=== PATIENT | female | born 1980 | race Caucasian/White ===

== ENCOUNTER 2022-01-20 09:53 | Emergency (ER) | payer OTHER, SELFPAY ==
[2022-01-20 10:12] VITALS: BP 129/72; PULSE 90; RESP 16; TEMP 36.4; O2SAT 100; BMI 32.8
--- NOTE | 2022-01-20 10:25 | ED.GENADULT ---
HPI - General Adult General Chief complaint: Shoulder Injury/Pain Stated complaint: shoulder injury Time Seen by Provider: 01/20/22 09:56 Source: patient Mode of arrival: ambulatory Limitations: no limitations History of Present Illness HPI narrative: 41-year-old female coming in today complaining right shoulder pain. She states that she was at work this morning, stretching out a pair of [employer] stockings, when she felt sharp pain in the right shoulder. The pain is located in the anterior shoulder radiate into the axilla down the side of the lateral chest and up into the lateral neck as well as the area above the shoulder blade. Sitting still makes it better any movement makes it worse. She denies any other joint pain or recent illness. Related Data Previous Rx's Medication Instructions Recorded cyclobenzaprine 10 mg tablet 10 mg PO TID PRN muscle spasm #10 01/20/22 tabs Allergies Allergy/AdvReac Type Severity Reaction Status Date / Time No Known Drug Allergies Allergy Verified 01/20/22 10:14 Review of Systems Status of ROS: Reports: 10 or more systems reviewed and unremarkable except as noted in History and below Exam Narrative: Exam Narrative: Well-nourished well-developed patient in no acute distress but appears uncomfortable. Alert and oriented. Answers questions appropriately. Mood and affect are appropriate. Thoughts are goal oriented and rational. No tangential or magical thinking noted. Patient speaks in full sentences without needing to catch her breath. HEENT: Normocephalic atraumatic. Pupils are equally round reactive to light. Extraocular muscles are intact. Conjunctivae are moist without any icterus noted. Extremities: Shoulders have normal appearance without any deformities. She has no tenderness to palpation over the bony prominences of the shoulder or shoulder blade. No pain over the clavicle. There is no bruising, erythema or swelling noted. She has no tenderness over the trapezius, deltoid. She has no tenderness to palpation of the anterior or lateral chest wall. Back is normal appearance. She does have full range of motion at the shoulder but it causes her discomfort to move it. Strength is 5/5 of the upper right extremity at the shoulder and elbow. Normal radial pulse. Skin: Well perfused without any obvious rashes. Const: Vital Signs, click to edit/add: Vital Signs - 24 hr 01/20/22 10:12 Temperature 97.6 F Pulse Rate [Left P ulse Oximeter] 90 Respiratory Rate 16 Blood Pressure [Ri ght Upper Arm] 129/72 Pulse Oximetry 100 Oxygen Delivery Me thod Room Air Course Vital Signs Vital signs: Initial Vital Signs Temperature 97.6 F 01/20/22 10:12 Temperature Source Temporal Artery Scan 01/20/22 10:12 Pulse Rate 90 01/20/22 10:12 Pulse Rhythm 01/20/22 10:12 Pulse Strength 3+ Normal 01/20/22 10:12 Respiratory Rate 16 01/20/22 10:12 Blood Pressure 129/72 01/20/22 10:12 Blood Pressure Mean 91 01/20/22 10:12 Blood Pressure Position Sitting 01/20/22 10:12 Pulse Oximetry 100 01/20/22 10:12 Oxygen Delivery Method 01/20/22 10:12 Vital Signs Temperature 97.6 F 01/20/22 10:12 Pulse Rate 90 01/20/22 10:12 Respiratory Rate 16 01/20/22 10:12 Blood Pressure 129/72 01/20/22 10:12 Pulse Oximetry 100 01/20/22 10:12 Oxygen Delivery Method 01/20/22 10:12 Temperature 97.6 F 01/20/22 10:12 Pulse Rate 90 01/20/22 10:12 Respiratory Rate 16 01/20/22 10:12 Blood Pressure 129/72 01/20/22 10:12 Pulse Oximetry 100 01/20/22 10:12 Oxygen Delivery Method 01/20/22 10:12 Medical Decision Making MDM Narrative Medical decision making narrative: 41-year-old female shoulder pain that started about an hour ago, appears to be musculoskeletal in nature. We discussed ibuprofen, heat and gentle stretching. Follow up if not improving over the next several days. Patient had no other questions. Discharge Plan Discharge Clinical Impression: Acute shoulder pain Patient Disposition: Home, Self-Care Condition: Stable Additional Instructions: Start ibuprofen 600-800 mg every 8 hours as needed. Use heat to the area, do not apply heat directly to skin. Gently stretch the shoulder and move it multiple times per day as we discussed. Use muscle relaxer as needed/as prescribed. Prescriptions: New cyclobenzaprine 10 mg tablet 10 mg PO TID PRN (Reason: muscle spasm) Qty: 10 0RF Follow Up/Referrals: Shar Jay MD [Primary Care Provider] - Stand Alone [facility]: [facility] Info Instructions
== END 2022-01-20 10:47 | disposition home or self-care (01) ==
LOC: ED 10:37
PROVIDERS: Emergency Provider Family Medicine; PCP Family Medicine
DX: M25.511 Pain in right shoulder (principal)
CPT/HCPCS: 99283; 99284